=== PATIENT | female | born 1980 | race Two or more races ===

== ENCOUNTER 2023-06-09 17:39 | Emergency (ER) | payer OTHER ==
[~2023-06-09] VITALS: Ht 154.9 cm; Wt 113.6 kg
[2023-06-09 18:25] LABS: Basophils # (auto) 0 10 ^3/uL (0-0.2); Basophils % (auto) 0.5 % (0.0-2.0); Eosinophils # (auto) 0.2 10 ^3/uL (0-0.8); Eosinophils % (auto) 2.3 % (0.0-7.0); Hematocrit 40.6 % (36.0-46.0); Hemoglobin 13.6 g/dL (12.2-16.2); Lymphocytes # (auto) 2.1 10 ^3/uL (0.4-5.4); Mean Corpuscular Hemoglobin 27.3 pg (28.0-32.0); Mean Corpuscular Hgb Conc. 33.5 g/dL (32.0-36.0); Mean Corpuscular Volume 81.4 fL (80.0-100.0); Monocytes # (auto) 0.7 10 ^3/uL (0-1.3); Monocytes % (auto) 8.4 % (0.0-12.0); Neutrophils # (auto) 5.3 10 ^3/uL (1.6-8.6); Neutrophils % (auto) 63.8 % (37.0-80.0); Nucleated Red Blood Cells % 0.1 %; Red Blood Cells 4.99 10^6/uL (4.0-5.20); Red Cell Distribution Width 14.7 % (11.8-14.3); White Blood Cell 8.2 10^3/uL (4.4-10.8)
[2023-06-09 18:39] LABS: Albumin 3.6 g/dL (3.4-5.0); Calcium 9.1 mg/dL (8.5-10.1); Magnesium 2.2 mg/dL (1.6-2.6); Potassium 3.9 mmol/L (3.5-5.1)
[2023-06-09 18:43] LABS: BUN/Creatinine Ratio 16.7 (10.0-20.0); Bilirubin, Total 0.3 mg/dL (0.2-1.0); Total Protein 7.6 g/dL (6.4-8.2)
[2023-06-09] MEDS ORDERED: IOHEXOL 300 MG/ML 100ML BOTTLE IJ ONE (19:07)
[2023-06-09] MEDS ORDERED: CYCL-611 PO (21:21)
[2023-06-09] MEDS ORDERED: NAP500T PO (21:21)
[2023-06-09 21:42] VITALS: BP 151/79; PULSE 86; RESP 17; TEMP 98.1; O2SAT 96
== END 2023-06-09 21:45 | disposition home or self-care (01) ==
LOC: ER 17:39 → EDBD 17:39 → ER 21:44
DX: S16.1XXA Strain of muscle, fascia and tendon at neck level, initial encounter (principal); S20.219A Contusion of unspecified front wall of thorax, initial encounter; E11.9 Type 2 diabetes mellitus without complications; S09.90XA Unspecified injury of head, initial encounter; E78.5 Hyperlipidemia, unspecified; V89.2XXA Person injured in unspecified motor-vehicle accident, traffic, initial encounter; Y93.89 Activity, other specified; Y92.89 Other specified places as the place of occurrence of the external cause; Y99.8 Other external cause status
CPT/HCPCS: 36415; 70450; 71045; 71260; 72125; 74177; 80053; 83735; 84484; 85025; 93005; 99285; Q9967

== ENCOUNTER 2024-10-24 06:10 | Day surgery (SDC) | payer OTHER ==
[2024-10-22 11:30] LABS: Urine Bacteria None Seen /hpf (None Seen)
[2024-10-22 11:34] LABS: Basophils # (auto) 0.1 10 ^3/uL (0-0.2); Eosinophils # (auto) 0.4 10 ^3/uL (0-0.8); Hemoglobin 12.5 g/dL (12.2-16.2); Monocytes # (auto) 0.6 10 ^3/uL (0-1.3); Neutrophils # (auto) 4.1 10 ^3/uL (1.6-8.6)
[2024-10-22 11:36] LABS: Basophils % (auto) 0.7 % (0.0-2.0); Lymphocytes # (auto) 1.9 10 ^3/uL (0.4-5.4); Lymphocytes % (auto) 26.6 % (10.0-50.0); Mean Corpuscular Hemoglobin 26.4 pg (28.0-32.0); Mean Corpuscular Hgb Conc. 32.1 g/dL (32.0-36.0); Monocytes % (auto) 8.2 % (0.0-12.0); Neutrophils % (auto) 58.5 % (37.0-80.0); Platelet Count (auto) 432 10^3/uL (140-450); Red Blood Cells 4.75 10^6/uL (4.0-5.20); Red Cell Distribution Width 15.8 % (11.8-14.3)
[2024-10-22 11:48] LABS: Urine Blood 2+ /uL (Negative); Urine Budding Yeast FEW /hpf (None Seen); Urine Clarity Turbid (Clear); Urine Color Colorless (Yellow); Urine Mucus FEW (None Seen); Urine Protein, UAD 1+ (Negative); Urine Specific Gravity 1.019 (1.001-1.035); Urine Squamous Epithelial Cell FEW /hpf (<5); Urine Urobilinogen Normal (Negative); Urine WBC 305 /hpf (0 - 5); Urine WBC Clumps PRESENT /hpf (None Seen); Urine pH 5.5 (5.0-9.0)
[2024-10-22 11:51] LABS: INR 0.99 (0.9-1.15); Partial Thromboplastin Time 34.1 SEC (24.5-34.5); Prothrombin Time 10.5 sec (9.3-11.8)
[2024-10-22 12:10] LABS: Alanine Aminotransferase 16 U/L (7-40); Albumin 4.6 g/dL (3.2-4.8); Alkaline Phosphatase 116 U/L (46-116); Anion Gap 5 (5-15); BUN/Creatinine Ratio 22.4 (10.0-20.0); Blood Urea Nitrogen 19 mg/dL (9-23); Calcium 10.3 mg/dL (8.7-10.4); Carbon Dioxide 28 mmol/L (20-31); Chloride 106 mmol/L (98-107); Potassium 4.1 mmol/L (3.5-5.1); Sodium 139 mmol/L (136-145)
[2024-10-22 12:11] LABS: Aspartate Aminotransferase < 8 U/L (13-40); Bilirubin, Total 0.3 mg/dL (0.2-1.0); Glucose 208 mg/dL (74-106); Total Protein 8.1 g/dL (5.7-8.2)
[~2024-10-24] VITALS: Ht 154.9 cm; Wt 117.9 kg
[~2024-10-24 06:10] MED LIST: ATOR-47 PO; EMPA1TAB3 PO; ESCI1TAB37 PO; GABA-1308 PO; INSLANTI SC; METO25TA5 PO; PIO30T PO
[2024-10-24] MEDS ORDERED: DOXAPRAM HCL 20 MG/ML 20ML VIAL INJ IV ONE (06:46)
[2024-10-24] MEDS ORDERED: SUCCINYLCHOLINE CHLORIDE 20 MG/ML 10ML VIAL IV ONE (06:46)
[2024-10-24] MEDS ORDERED: ROCURONIUM 10MG/ML 10ML VIAL IV ONE (06:46)
[2024-10-24] MEDS ORDERED: IOHEXOL 300 MG/ML 100ML BOTTLE IJ ONE (06:47)
[2024-10-24] MEDS ORDERED: METOCLOPRAMIDE HCL 5MG/ml INJ 2ml VIAL IV ONE (07:00)
[2024-10-24] MEDS ORDERED: KETOROLAC TROMETH 30 MG/ML 1ML VIAL IV ONE (07:00)
[2024-10-24] MEDS ORDERED: ACCU-CHEK COMFORT CURVE STRIP VI ONE (07:00)
[2024-10-24] MEDS ORDERED: MORPHINE SULFATE INJ 2 MG/ml SYRG IV PRN (07:00)
[2024-10-24] MEDS ORDERED: HYDROmorphone HCL 2 MG/ML VL/or syr IV PRN ×2 (07:00)
[2024-10-24] MEDS ORDERED: fentaNYL CITRATE 100 MCG/2 ML VL IV PRN (07:00)
[2024-10-24] MEDS ORDERED: CIPROFLOXACIN 400MG/200ML 200 ML IV ONE (07:04)
[2024-10-24] MEDS ORDERED: NEOSTIGMINE 1 MG/ML INJ (10mg/10ML VIAL) ONE (07:12)
[2024-10-24] MEDS ORDERED: PROPOFOL 10 MG/ML 20 ML IV ONE (07:12)
[2024-10-24] MEDS ORDERED: LIDOCAINE 1% INJ PF 5ML AMP ONE (07:12)
[2024-10-24] MEDS ORDERED: ONDANSETRON HCL 4 MG/2 ML VIAL ONE (07:12)
[2024-10-24] MEDS ORDERED: MEPERIDINE HCL (50 MG/ML) 1 ML VIAL ONE (07:12)
[2024-10-24] MEDS ORDERED: SODIUM CHLORIDE LOCK 10 ML ONE (07:12)
[2024-10-24] MEDS ORDERED: GLYCOPYRROLATE 0.2 MG/ML 1ML VIAL ONE (07:12)
[2024-10-24] MEDS ORDERED: LIDOCAINE HCL 2% TOP JELLY 5ML TOP ONE (07:12)
[2024-10-24] MEDS ORDERED: MIDAZOLAM HCL 2MG/2ML 2ml VIAL (1mg/ml) ONE (07:12)
[2024-10-24] MEDS ORDERED: fentaNYL CITRATE 100 MCG/2 ML VL ONE (07:12)
[2024-10-24 09:06] VITALS: PULSE 78; RESP 10; TEMP 97; O2SAT 99
--- NOTE | 2024-10-24 09:13 | DVHDS2 ---
New Physician D'charge PN Admitting Diagnosis Admitting Diagnosis Left nephrolithiasis Left percutaneous nephrostomy tube in Situ Discharge Diagnosis Seen Operations or Procedures Left ureteroscopic laser lithotripsy with CVAC system Removal of left percutaneous nephrostomy Cystoscopy with left ureteral stent placement Reason(s) For Hospitalization Surgery Treatment Plan Discharge Condition of Discharge Good Disposition Home Discharge Instructions Diet: Regular Activity: Light activity Activity comment: As tolerated Medications: Given Follow Up Care Follow Up/Referral: Cystoscopy with stent removal in two weeks Discharge Statement: "Patient was advised to return to the ER or call 911 if any headaches, dizziness, shortness of breath, chest pain, abdominal pain, bleeding, fevers, or worsening of medical condition. Patient was counseled about treatment plan, medications, possible side effects, patientverbalized understanding. All questions were answered to the best of my ability. This discharge took greater then 30 minutes in planning, reviewing documentation, counseling the patient, and discussing with other team members." DOMINICK PATIÑO MD Oct 24, 2024 09:13
[2024-10-24 10:15] VITALS: BP 141/72; PULSE 67; RESP 23; O2SAT 97
--- NOTE | 2024-10-24 12:13 | DVH ---
C-ARM FLUOROSCOPY: PROCEDURE: Lithotripsy with left ureteral stent FLUOROSCOPY TIME: 25.5 sec
--- NOTE | 2024-10-24 12:13 | DVH ---
C-ARM FLUOROSCOPY: PROCEDURE: Lithotripsy with left ureteral stent FLUOROSCOPY TIME: 25.5 sec
== END 2024-10-24 10:30 | disposition home or self-care (01) ==
LOC: SUR 06:10
PROVIDERS: ATTEND Urology
DX: N13.2 Hydronephrosis with renal and ureteral calculous obstruction (principal); I10 Essential (primary) hypertension; E11.42 Type 2 diabetes mellitus with diabetic polyneuropathy; Z79.899 Other long term (current) drug therapy; Z79.84 Long term (current) use of oral hypoglycemic drugs; Z98.890 Other specified postprocedural states; E66.01 Morbid (severe) obesity due to excess calories; Z68.42 Body mass index [BMI] 45.0-49.9, adult
CPT/HCPCS: 36415; 50389; 52356; 74018; 80053; 81001; 81025; 82360; 82962; 85025; 85610; 85730; 87086; 87088; 87186; 88300; C2617; J0330; J0744; J2175; J2250; J2405; J2704; J3010; 76000